=== PATIENT | male | born 1965 | race Caucasian/White ===

== ENCOUNTER 2021-06-23 17:13 | Emergency (ER) | payer MEDICAID ==
--- NOTE | 2021-06-23 17:35 | NUR ---
CALLED IN ED WAITING ROOM. NO RESPONSE.
--- NOTE | 2021-06-23 17:45 | NUR ---
CALLED IN ED WAITING ROOM. NO RESPONSE
== END 2021-06-23 18:20 | disposition left against medical advice (07) ==
LOC: ER 17:13
DX: Z53.21 Procedure and treatment not carried out due to patient leaving prior to being seen by health care provider (principal)